=== PATIENT | male | born 1945 | race Caucasian/White ===

== ENCOUNTER → 2024-06-09 09:39 | Outpatient (CLI) | payer MEDICARE, SELFPAY ==
--- NOTE | 2024-06-09 18:16 | DI.NM.S_ITS ---
DATE OF SERVICE: 06/09/2024 NUCLEAR CARDIOLOGY MYOCARDIAL PERFUSION STUDY PROCEDURE PERFORMED: Exercise treadmill stress and rest myocardial perfusion imaging with gating to assess ejection fraction and regional wall motion. ORDERING PROVIDER: Awais Sellers MD. INDICATIONS: The patient is a 78-year-old male with significant coronary calcification on CT and an abnormal ECG. CARDIAC STRESS: The patient was able to exercise for 6 minutes 10 seconds on a standard Ruben protocol suggesting good exercise capacity with an YU of -8%, achieving 7.0 METS. He had a normal heart rate and blood pressure response to exercise, achieving a maximum heart rate of 131 bpm (92% of his predicted maximum). He had no chest discomfort or other anginal symptoms. His resting ECG shows sinus rhythm with an incomplete RBBB and LAFB but relatively normal ST segments. With stress, there were no significant ST-segment shifts or arrhythmias. At 5 minutes of exercise at a heart rate of 123 bpm, 24.3 millicuries of technetium-99m Myoview was injected and he was imaged 15 minutes later using a gated SPECT acquisition protocol. Earlier in the day while at rest, he had been injected with 12.0 millicuries of technetium-99m Myoview and was imaged 15 minutes later, again using a gated SPECT acquisition protocol. FINDINGS: 1. Raw data. There is fair myocardial tracer uptake with slight motion noted and a suggestion of diaphragmatic attenuation. The lung/heart ratio is normal at 0.36 with a normal TID ratio of 0.97. 2. Quantitated gated SPECT: Post-stress ejection fraction is 71% without any focal wall motion abnormality and specifically the inferior wall has normal, brisk contractility. The resting ejection fraction is 65% and a similar contraction pattern. Left ventricular volumes are mildly increased with an end-diastolic volume of 134 mL 3. Myocardial perfusion imaging: Post-stress supine images show a moderate to severe perfusion defect throughout the inferior wall, extending to the apex. While somewhat more profound than typically seen with diaphragmatic attenuation artifact, it nearly completely resolves on the prone images suggesting that it is likely an attenuation artifact. The resting images show an identical perfusion pattern without any improvement in the inferior wall defect or elsewhere. IMPRESSION: 1. Probable normal, low risk myocardial perfusion study. 2. Moderate sized, moderate-severe fixed perfusion defect in the inferior wall that nearly completely resolves on prone imaging, although with a very slight residual defect, raising the possibility that this could reflect a true perfusion defect, thus possibly reflecting a previous myocardial infarction, but the lack of any wall motion abnormality in this distribution suggests it more likely reflects attenuation artifact. There is no evidence for any reversibility to suggest any myocardial ischemia. 3. Normal left ventricular systolic function without focal abnormality but mildly increased left ventricular volumes. 4. Good exercise capacity without angina or ECG evidence of ischemia. There were no arrhythmias. Migdalia Wily - DELLA/robbie/SKJoe doc#: [id number]/job#: [id number] dd: 06/09/2024 17:01:00 dt: 06/09/2024 17:17:00 DICTATING MD/COPIES TO: Isai Ferraro MD; Awais Sellers MD COPIES MNE: RENETTA;
== END ==
PROVIDERS: Referring Provider Internal Medicine Cardiovascular Disease; Visit Provider Internal Medicine Cardiovascular Disease
DX: I25.10 Atherosclerotic heart disease of native coronary artery without angina pectoris (principal); R94.31 Abnormal electrocardiogram [ECG] [EKG]; E78.5 Hyperlipidemia, unspecified; I45.2 Bifascicular block; I10 Essential (primary) hypertension
CPT/HCPCS: 78452; 93017; A9502